=== PATIENT | male | born 1995 | race Caucasian/White ===

== ENCOUNTER 2019-09-10 20:30 | Emergency (ER) | payer OTHER ==
[~2019-09-10] VITALS: Ht 180.3 cm; Wt 93.0 kg
[2019-09-10] MEDS ORDERED: MUCINEX600 MG PO (20:43)
[2019-09-10] MEDS ORDERED: ZYRTEC10 M5 PO (20:43)
[2019-09-10] MEDS ORDERED: PROAIR HFA8.5 GM INH (21:38)
[2019-09-10 22:47] VITALS: BP 113/63
== END 2019-09-10 22:45 | disposition home or self-care (01) ==
LOC: ER 20:30
DX: J06.9 Acute upper respiratory infection, unspecified (principal); F17.210 Nicotine dependence, cigarettes, uncomplicated